=== PATIENT | female | born 1990 | race American Indian/Alaskan Native ===

== ENCOUNTER 2019-07-09 20:20 | Emergency (ER) | payer BC ==
[2019-07-09 21:27] VITALS: BP 127/78
--- NOTE | 2019-07-09 21:43 | Emergency Department Report ---
Blank Doc - Documentation Documentation: 29-year-old female that presents with right upper abdominal with radiation to flank and urinary pressure. This initial assessment/diagnostic orders/clinical plan/treatment(s) is/are subject to change based on patient's health status, clinical progression and re- assessment by fellow clinical providers in the ED. Further treatment and workup at subsequent clinical providers discretion. Patient/guardians urged not to elope from the ED as their condition may be serious if not clinically assessed and managed. Initial orders include: 1- Patient sent to [facility] for further evaluation and treatment 2- labs 3- UA
[2019-07-09 22:18] LABS: Bilirubin,Urine NEG (Negative); Blood,Urine MOD (Negative); Color,Urine Yellow (Yellow); Mucus,Urine FEW /HPF; Urobilinogen,Urine < 2.0 mg/dL (<2.0)
[2019-07-09 22:23] LABS: WBC,Urine > 182.0 /HPF (0.0-6.0)
[2019-07-09 22:51] LABS: Basophils % (Auto) 0.5 % (0.0-1.8); Eosinophils # (Auto) 0.1 K/mm3 (0.0-0.4); Hematocrit 37.9 % (30.3-42.9); Hemoglobin 12.6 gm/dl (10.1-14.3); Lymphocytes # (Auto) 1.7 K/mm3 (1.2-5.4); Lymphocytes % (Auto) 22.4 % (13.4-35.0); Mean Corpuscular HGB Conc 33 % (30-34); Mean Corpuscular Volume 92 fl (79-97); Monocytes # (Auto) 0.6 K/mm3 (0.0-0.8); Monocytes % (Auto) 8.1 % (0.0-7.3); Platelet Count 181 K/mm3 (140-440); Red Cell Distribution Width 13.4 % (13.2-15.2)
[2019-07-09 23:04] LABS: Alanine Aminotransferase 13 units/L (7-56); Albumin 4.3 g/dL (3.9-5); BUN/Creatinine Ratio 19; Blood Urea Nitrogen 15 mg/dL (7-17); Calcium 9.4 mg/dL (8.4-10.2); Hemolysis Index 6
[2019-07-10] MEDS ORDERED: levoFLOXacin 500 MG TAB PO STA (00:48)
== END 2019-07-10 01:38 | disposition home or self-care (01) ==
LOC: ED 20:20
DX: R10.2 Pelvic and perineal pain (principal); Z53.21 Procedure and treatment not carried out due to patient leaving prior to being seen by health care provider
CPT/HCPCS: 36415; 80053; 81001; 83690; 84703; 85025

== ENCOUNTER 2019-07-18 15:08 | Emergency (ER) | payer BC, MEDICAID ==
--- NOTE | 2019-07-18 16:00 | Emergency Department Report ---
Blank Doc - Documentation Documentation: 29-year-old female that presents with blood in stool. This initial assessment/diagnostic orders/clinical plan/treatment(s) is/are subject to change based on patient's health status, clinical progression and re- assessment by fellow clinical providers in the ED. Further treatment and workup at subsequent clinical providers discretion. Patient/guardians urged not to elope from the ED as their condition may be serious if not clinically assessed and managed. Initial orders include: 1- Patient sent to [facility] for further evaluation and treatment 2- labs 3- UA
[2019-07-18 16:34] LABS: Basophils % (Auto) 0.9 % (0.0-1.8); Eosinophils # (Auto) 0.1 K/mm3 (0.0-0.4); Eosinophils % (Auto) 1.5 % (0.0-4.3); Hematocrit 38.2 % (30.3-42.9); Hemoglobin 13.2 gm/dl (10.1-14.3); Lymphocytes # (Auto) 1.9 K/mm3 (1.2-5.4); Lymphocytes % (Auto) 36.4 % (13.4-35.0); Mean Corpuscular HGB Conc 35 % (30-34); Mean Corpuscular Volume 91 fl (79-97); Monocytes # (Auto) 0.5 K/mm3 (0.0-0.8); Monocytes % (Auto) 9.9 % (0.0-7.3); Platelet Count 196 K/mm3 (140-440); Red Cell Distribution Width 13.2 % (13.2-15.2)
[2019-07-18 16:43] LABS: INR 1.02 (0.87-1.13)
[2019-07-18 16:44] LABS: Partial Thromboplastin Time 35.4 Sec. (24.2-36.6)
[2019-07-18 16:55] LABS: Alanine Aminotransferase 13 units/L (7-56); Albumin 4.4 g/dL (3.9-5); BUN/Creatinine Ratio 16; Blood Urea Nitrogen 13 mg/dL (7-17); Hemolysis Index 15
[2019-07-18 17:01] LABS: Bacteria,Urine 1+ /HPF (Negative); Bilirubin,Urine NEG (Negative); Blood,Urine SM (Negative); Color,Urine Straw (Yellow); Mucus,Urine FEW /HPF; Protein,Urine <15 mg/dL mg/dL (Negative); Urobilinogen,Urine < 2.0 mg/dL (<2.0)
--- NOTE | 2019-07-18 18:08 | Emergency Department Report ---
HPI - General Chief Complaint: GI Bleed Time Seen by Provider: 07/18/19 15:58 - HPI HPI: 29 yo AA F presents to the ED with the complaint of a 1 week history of possible rectal bleeding. This has been going on since the patient began taking her macrobid and pyridium that was previously prescribed here for a UTI. She has no back or abdominal pain. No previous history of GI bleed. She has a pmhx of some chronic orthopedic pain and disc disease. She has not taken anything for her symptoms prior to presentation. ED Past Medical Hx - Past Medical History Previous Medical History?: No - Surgical History Past Surgical History?: No - Social History Smoking Status: Never Smoker Substance Use Type: Marijuana - Medications Home Medications: Home Medications Medication Instructions Recorded Confirmed Last Taken Type Nitrofurantoin Macrocrysta(Nf) 100 mg PO BID #20 capsule 07/10/19 Unknown Rx [Macrodantin CAP] Phenazopyridine [Pyridium] 200 mg PO BID #10 tab 07/10/19 Unknown Rx ED Review of Systems ROS: Stated complaint: BLOOD IN STOOL Other details as noted in HPI Comment: All other systems reviewed and negative Constitutional: denies: chills, fever Gastrointestinal: abdominal pain, other (rectal bleed) Genitourinary: denies: dysuria, discharge Musculoskeletal: denies: back pain Physical Exam - Physical Exam Vital Signs: Vital Signs 07/18/19 15:58 Temperature 98.3 F Pulse Rate 86 Respiratory 16 Rate Blood Pressure 102/65 O2 Sat by Pulse 96 Oximetry Physical Exam: GENERAL: The patient is well-developed well-nourished. HENT: Normocephalic. Atraumatic. Patient has moist mucous membranes. EYES: Extraocular motions are intact. NECK: Supple. Trachea is midline. CHEST/LUNGS: Clear to auscultation. There is no respiratory distress noted. HEART/CARDIOVASCULAR: Regular. There is no tachycardia. There is no murmur. ABDOMEN: Abdomen is soft, nontender. Patient has normal bowel sounds. There is no abdominal distention. SKIN: Skin is warm and dry. NEURO: The patient is awake, alert, and oriented. The patient is cooperative. Normal speech. MUSCULOSKELETAL: There is no tenderness or deformity. There is no evidence of acute injury. RECTAL: There is a very small nonthrombosed hemorrhoid at the 6 o'clock position. No gross blood. There was very little stool for guaiac testing but the small amount obtained was brown in color and negative on guaiac testing. ED Course Vital Signs 07/18/19 15:58 Temperature 98.3 F Pulse Rate 86 Respiratory 16 Rate Blood Pressure 102/65 O2 Sat by Pulse 96 Oximetry - Reevaluation(s) Reevaluation #1: Rectal examination was done with nurse Hodges at bedside for assistance and as a technology officer. 07/18/19 18:46 ED Medical Decision Making - Lab Data Result diagrams: 07/18/19 16:12 07/18/19 16:12 - Medical Decision Making This patient presents with the complaint of some discolored stool that gave her concern for rectal bleeding. His has been going on since the patient started taking the Pyridium for her previous UTI. The patient's labs have been unremarkable including a normal stable hemoglobin of 13. On rectal exam there is a small nonthrombosed external hemorrhoid at the 6 o'clock position. There was not much stool found to test but the small amount that was obtained was brown in color and negative on guaiac testing. Vital signs stable throughout her ED course. The patient appears safe for discharge home and has been given a referral for gastroenterology. She will return to the ER with any worsening of her symptoms or any acute distress. - Differential Diagnosis hemorrhoids, malignancy, diverticulosis Critical Care Time: No Critical care attestation.: If time is entered above; I have spent that time in minutes in the direct care of this critically ill patient, excluding procedure time. ED Disposition Clinical Impression: Rectal bleeding Disposition: DC-01 TO HOME OR SELFCARE Is pt being admited?: No Condition: Stable Additional Instructions: While I have not seen any evidence of rectal bleeding during her examination here today, I still believe you need to be evaluated by a warehouse examiner for your discolored stools or possible GI bleeding. I'm giving you a referral for a local warehouse examiner, Dr. Pk Lamb. Return to the emergency Department with any worsening of your symptoms or any acute distress. Referrals: PRIMARY CARE, [Primary Care Provider] - 3-5 Days YINA LAMB MD [Staff Physician] - 3-5 Days Forms: Accompanied Note, Work/School Release Form(ED) Time of Disposition: 18:48
[2019-07-18 19:19] VITALS: BP 138/89
== END 2019-07-18 19:18 | disposition home or self-care (01) ==
LOC: ED 15:08
DX: K62.5 Hemorrhage of anus and rectum (principal); F12.10 Cannabis abuse, uncomplicated; Z79.899 Other long term (current) drug therapy
CPT/HCPCS: 36415; 80053; 81001; 83690; 84703; 85025; 85610; 85730; 99283